=== PATIENT | male | born 1960 | race African-American/Black ===

== ENCOUNTER → 2024-02-11 | Day surgery (SDC) | payer OTHER ==
[~2024-02-11] MED LIST: ACETAMINOPHEN/CODEINE 300MG - 30MG TAB ONE; FENTANYL CITRATE/PF 100MCG/2 ML INJ ONE; FINASTERIDE5 MG PO; FLOMAX0.4 MG PO; LIDOCAINE HCL 2% LOCAL INJ 5 ML SDV VIAL INJ ONE; LIPITOR10 MG PO; MIDAZOLAM HCL 2 MG/2 ML VIAL ONE; ONDANSETRON HCL INJ 2MG/ML 2ML 2 MG/ML VIAL ONE; PHENAZOPYRIDINE HCL 100 MG TAB ONE; PROPOFOL IV EMULSION 10 MG/ML 20 ML VIAL ONE
[2024-02-11 06:59] LABS: BASOPHILS % 0.7 % (0.0-1.0); EOSINOPHILS # (AUTO) 0.2 (0.0-0.4); HEMOGLOBIN 15.5 g/dL (14.0-18.0); LYMPHOCYTES # (AUTO) 1.9 (1.0-3.2); LYMPHOCYTES % 41.6 % (18.0-39.1); MEAN CORPUSCULAR HEMOGLOBIN 30.8 pg (28-32); MEAN CORPUSCULAR HGB CONC 32.3 g/dL (31-35); MEAN CORPUSCULAR VOLUME 95.2 fL (81-99); MONOCYTES # (AUTO) 0.5 (0.2-0.8); MONOCYTES % 9.9 % (4.4-11.3); NEUTROPHILS % 43.4 % (38.7-80.0); PLATELET COUNT 213 x10e3/uL (140-360); RED BLOOD COUNT 5.04 x10e6/uL (4.3-5.7); WHITE BLOOD COUNT 4.54 x10e3/uL (4.8-10.8)
[2024-02-11] MEDS: CEFTRIAXONE 1 GM VIAL ONE (07:23)
[2024-02-11] MEDS: LACTATED RINGER'S 1,000 ML ONE (07:23)
[2024-02-11 07:24] LABS: ALBUMIN 4.1 g/dL (3.5-5.0); ALBUMIN/GLOBULIN RATIO 1.2 (0.8-2.0); ANION GAP 15.9 mmol/L (8-16); BILIRUBIN,TOTAL 0.9 mg/dL (0.2-1.2); CREATININE, SERUM 1.39 mg/dL (0.72-1.25); POTASSIUM 3.9 mmol/L (3.5-5.1); TOTAL PROTEIN 7.5 g/dL (6.5-8.1); URIC ACID 5.4 mg/dL (4.8-8.0)
[2024-02-11] MEDS: GENTAMICIN 80MG/NS 100 ML 200 ML IV ONE (07:24)
[2024-02-11 09:17] VITALS: TEMP 97
[2024-02-11] MEDS: PHENAZOPYRIDINE HCL 100 MG TAB PO ONE ×2 (09:38)
[2024-02-11] MEDS: ACETAMINOPHEN/CODEINE 300MG - 30MG TAB PO ONE (09:45)
[2024-02-11 09:54] VITALS: BP 145/89; PULSE 65; RESP 18; O2SAT 96
== END | disposition home or self-care (01) ==
LOC: OR 06:38
PROVIDERS: ATTEND Urology
DX: N21.0 Calculus in bladder (principal); N39.0 Urinary tract infection, site not specified; R31.29 Other microscopic hematuria; R31.0 Gross hematuria; N40.1 Benign prostatic hyperplasia with lower urinary tract symptoms; R97.20 Elevated prostate specific antigen [PSA]; R35.1 Nocturia; R39.14 Feeling of incomplete bladder emptying; R35.0 Frequency of micturition; N32.81 Overactive bladder; N20.0 Calculus of kidney; N39.41 Urge incontinence; I10 Essential (primary) hypertension; E78.00 Pure hypercholesterolemia, unspecified; Z79.899 Other long term (current) drug therapy
CPT/HCPCS: 36415; 52318; 74420; 80053; 84550; 85025; 88300; C1758; C1769; J0696; J1580; J2003; J2250; J2405; J2704; J3010; J7121

== ENCOUNTER 2024-04-16 06:55 | Inpatient (IN) | payer OTHER ==
[~2024-04-16] VITALS: Ht 177.8 cm; Wt 86.6 kg
[2024-04-16] VITALS (7 sets, daily range): BP systolic 116–124; BP diastolic 77–82; PULSE 54–69; RESP 16–19; TEMP 97.4–98.6; O2SAT 96–100
[~2024-04-16 06:55] MED LIST changes: -ACETAMINOPHEN/CODEINE 300MG - 30MG TAB ONE; -FENTANYL CITRATE/PF 100MCG/2 ML INJ ONE; -LIDOCAINE HCL 2% LOCAL INJ 5 ML SDV VIAL INJ ONE; -MIDAZOLAM HCL 2 MG/2 ML VIAL ONE; -ONDANSETRON HCL INJ 2MG/ML 2ML 2 MG/ML VIAL ONE; -PHENAZOPYRIDINE HCL 100 MG TAB ONE; -PROPOFOL IV EMULSION 10 MG/ML 20 ML VIAL ONE
[2024-04-16] MEDS: PIPERACILLIN/TAZOBACTAM 3.375 GM VIAL ONE (07:55)
[2024-04-16] MEDS: GENTAMICIN 80MG/NS 100 ML 200 ML IV ONE (07:55)
[2024-04-16] MEDS: SODIUM CHLORIDE 0.9% 1000ML 1,000 ML ONE (07:55)
[2024-04-16 08:00] LABS: BASOPHILS % 0.4 % (0.0-1.0); EOSINOPHILS # (AUTO) 0.1 (0.0-0.4); EOSINOPHILS % 2.7 % (0.0-6.0); HEMOGLOBIN 15.4 g/dL (14.0-18.0); LYMPHOCYTES # (AUTO) 2.1 (1.0-3.2); LYMPHOCYTES % 43.2 % (18.0-39.1); MEAN CORPUSCULAR HGB CONC 33.5 g/dL (31-35); MEAN CORPUSCULAR VOLUME 89.7 fL (81-99); MONOCYTES # (AUTO) 0.4 (0.2-0.8); MONOCYTES % 8.6 % (4.4-11.3); NEUTROPHILS # (AUTO) 2.2 (2.1-6.9); NEUTROPHILS % 44.9 % (38.7-80.0); PLATELET COUNT 214 x10e3/uL (140-360); RED BLOOD COUNT 5.13 x10e6/uL (4.3-5.7); RED CELL DISTRIBUTION WIDTH 12.4 % (11.7-14.4); WHITE BLOOD COUNT 4.79 x10e3/uL (4.8-10.8)
[2024-04-16 08:18] LABS: ANION GAP 14.5 mmol/L (8-16); CALCIUM 9.4 mg/dL (8.4-10.2); CREATININE, SERUM 1.47 mg/dL (0.72-1.25); POTASSIUM 4.5 mmol/L (3.5-5.1)
[2024-04-16] MEDS ORDERED: MIDAZOLAM HCL 2 MG/2 ML VIAL ONE (08:46)
[2024-04-16] MEDS ORDERED: FENTANYL CITRATE/PF 100MCG/2 ML INJ ONE ×2 (08:46→10:29)
[2024-04-16] MEDS ORDERED: LIDOCAINE HCL 2% LOCAL INJ 5 ML SDV VIAL INJ ONE (08:46)
[2024-04-16] MEDS ORDERED: PROPOFOL IV EMULSION 10 MG/ML 20 ML VIAL ONE (08:46)
[2024-04-16] MEDS ORDERED: EPHEDRINE SULFATE INJ 50 MG/ML VIAL ONE (10:07)
[2024-04-16] MEDS ORDERED: DEXAMETHASONE SOD PHOS INJ 4 MG/ML SDV ONE (10:07)
[2024-04-16] MEDS ORDERED: ONDANSETRON HCL INJ 2MG/ML 2ML 2 MG/ML VIAL ONE (10:12)
[2024-04-16] MEDS ORDERED: SEVOFLURANE INHAL SOLN 250 ML PEN BTL ONE (10:13)
[2024-04-16] MEDS ORDERED: ACETAMINOPHEN 1000 MG/100 ML 100 ML IV ONE (10:13)
[2024-04-16] MEDS ORDERED: GLYCOPYRROLATE INJ 0.2 MG/ML VIAL ONE ×2 (10:33→11:48)
[2024-04-16] MEDS ORDERED: ROCURONIUM BROMIDE 1 ML IV ONE (10:43)
[2024-04-16] MEDS ORDERED: NEOSTIGMINE 1 MG/ML 10ML VIAL ONE (11:48)
[2024-04-16 12:14] LABS: BASOPHILS % 0.3 % (0.0-1.0); EOSINOPHILS # (AUTO) 0.1 (0.0-0.4); EOSINOPHILS % 1.4 % (0.0-6.0); HEMATOCRIT 39.3 % (38.2-49.6); LYMPHOCYTES # (AUTO) 1.5 (1.0-3.2); MEAN CORPUSCULAR HEMOGLOBIN 29.9 pg (28-32); MEAN CORPUSCULAR HGB CONC 33.1 g/dL (31-35); MEAN CORPUSCULAR VOLUME 90.3 fL (81-99); MONOCYTES # (AUTO) 0.1 (0.2-0.8); MONOCYTES % 2.2 % (4.4-11.3); NEUTROPHILS # (AUTO) 4.1 (2.1-6.9); NEUTROPHILS % 69.9 % (38.7-80.0); PLATELET COUNT 156 x10e3/uL (140-360); RED BLOOD COUNT 4.35 x10e6/uL (4.3-5.7); RED CELL DISTRIBUTION WIDTH 12.4 % (11.7-14.4)
[2024-04-16] MEDS ORDERED: ONDANSETRON HCL INJ 2MG/ML 2ML 2 MG/ML VIAL IV PRN (12:15)
[2024-04-16] MEDS ORDERED: DIPHENHYDRAMINE HCL 25 MG CAP PO PRN (12:15)
[2024-04-16] MEDS ORDERED: ACETAMINOPHEN/CODEINE 300MG - 30MG TAB PO PRN (12:15)
[2024-04-16] MEDS ORDERED: PHENAZOPYRIDINE HCL 100 MG TAB PO PRN (12:15)
[2024-04-16] MEDS ORDERED: ACETAMINOPHEN 1000 MG/100 ML IV PRN (12:15)
[2024-04-16 12:47] LABS: ANION GAP 12.5 mmol/L (8-16); CALCIUM 7.6 mg/dL (8.4-10.2); CREATININE, SERUM 1.35 mg/dL (0.72-1.25); POTASSIUM 4.5 mmol/L (3.5-5.1)
[2024-04-16] MEDS: SODIUM CHLORIDE 0.9% 1000ML 1,000 ML IV SCH (14:20)
[2024-04-16] MEDS ORDERED: SENNA-S TABLET PO SCH (17:00)
[2024-04-16] MEDS: SENNA-S TABLET PO SCH (21:06)
[2024-04-17] VITALS (9 sets, daily range): BP systolic 107–125; BP diastolic 66–78; PULSE 61–85; RESP 18–20; TEMP 97.9–99.1; O2SAT 95–100
[2024-04-17 05:29] LABS: BASOPHILS % 0.1 % (0.0-1.0); HEMATOCRIT 37.5 % (38.2-49.6); HEMOGLOBIN 12.5 g/dL (14.0-18.0); LYMPHOCYTES # (AUTO) 0.8 (1.0-3.2); LYMPHOCYTES % 7.8 % (18.0-39.1); MEAN CORPUSCULAR HEMOGLOBIN 29.9 pg (28-32); MEAN CORPUSCULAR HGB CONC 33.3 g/dL (31-35); MEAN CORPUSCULAR VOLUME 89.7 fL (81-99); MONOCYTES # (AUTO) 0.3 (0.2-0.8); MONOCYTES % 3.2 % (4.4-11.3); NEUTROPHILS # (AUTO) 9.4 (2.1-6.9); NEUTROPHILS % 88.6 % (38.7-80.0); PLATELET COUNT 181 x10e3/uL (140-360); RED BLOOD COUNT 4.18 x10e6/uL (4.3-5.7); RED CELL DISTRIBUTION WIDTH 12.6 % (11.7-14.4); WHITE BLOOD COUNT 10.57 x10e3/uL (4.8-10.8)
[2024-04-17 05:54] LABS: ANION GAP 13.4 mmol/L (8-16); CALCIUM 8.1 mg/dL (8.4-10.2); CREATININE, SERUM 1.46 mg/dL (0.72-1.25); POTASSIUM 4.4 mmol/L (3.5-5.1)
[2024-04-18] VITALS (10 sets, daily range): BP systolic 109–128; BP diastolic 62–80; PULSE 60–75; RESP 18–20; TEMP 97.9–98.3; O2SAT 95–100
[2024-04-18 05:12] LABS: BASOPHILS % 0.1 % (0.0-1.0); EOSINOPHILS % 0.2 % (0.0-6.0); HEMATOCRIT 36.7 % (38.2-49.6); HEMOGLOBIN 12.2 g/dL (14.0-18.0); LYMPHOCYTES # (AUTO) 1.6 (1.0-3.2); LYMPHOCYTES % 16.2 % (18.0-39.1); MEAN CORPUSCULAR HEMOGLOBIN 30.4 pg (28-32); MEAN CORPUSCULAR HGB CONC 33.2 g/dL (31-35); MEAN CORPUSCULAR VOLUME 91.5 fL (81-99); MONOCYTES # (AUTO) 0.6 (0.2-0.8); MONOCYTES % 5.8 % (4.4-11.3); NEUTROPHILS # (AUTO) 7.6 (2.1-6.9); NEUTROPHILS % 77.3 % (38.7-80.0); PLATELET COUNT 170 x10e3/uL (140-360); RED BLOOD COUNT 4.01 x10e6/uL (4.3-5.7); RED CELL DISTRIBUTION WIDTH 12.8 % (11.7-14.4); WHITE BLOOD COUNT 9.78 x10e3/uL (4.8-10.8)
[2024-04-18 05:33] LABS: CALCIUM 8.1 mg/dL (8.4-10.2); CREATININE, SERUM 1.18 mg/dL (0.72-1.25)
[2024-04-19] VITALS (7 sets, daily range): BP systolic 102–142; BP diastolic 68–93; PULSE 58–83; RESP 18–21; TEMP 97.6–98.2; O2SAT 97–100
[2024-04-19 05:22] LABS: BASOPHILS % 0.3 % (0.0-1.0); EOSINOPHILS # (AUTO) 0.2 (0.0-0.4); EOSINOPHILS % 2.9 % (0.0-6.0); HEMATOCRIT 35.9 % (38.2-49.6); HEMOGLOBIN 11.9 g/dL (14.0-18.0); LYMPHOCYTES % 34.2 % (18.0-39.1); MEAN CORPUSCULAR HEMOGLOBIN 30.1 pg (28-32); MEAN CORPUSCULAR HGB CONC 33.1 g/dL (31-35); MEAN CORPUSCULAR VOLUME 90.7 fL (81-99); MONOCYTES # (AUTO) 0.5 (0.2-0.8); MONOCYTES % 8.5 % (4.4-11.3); NEUTROPHILS # (AUTO) 3.1 (2.1-6.9); NEUTROPHILS % 53.8 % (38.7-80.0); PLATELET COUNT 168 x10e3/uL (140-360); RED BLOOD COUNT 3.96 x10e6/uL (4.3-5.7); RED CELL DISTRIBUTION WIDTH 12.8 % (11.7-14.4); WHITE BLOOD COUNT 5.79 x10e3/uL (4.8-10.8)
[2024-04-19 05:49] LABS: CREATININE, SERUM 1.26 mg/dL (0.72-1.25)
[2024-04-19] MEDS ORDERED: TYLENOL325 MG PO (19:01)
[2024-04-19] MEDS ORDERED: SENNA S TABLET1 EACH PO (19:01)
[2024-04-19] MEDS ORDERED: LEVOFLOXACIN250 MG PO (19:01)
== END 2024-04-19 20:40 | disposition home or self-care (01) | DRG 713 ==
LOC: OR 06:55 → PACU V 13:18 → MED/SURG 13:31
PROVIDERS: ADMIT Internal Medicine; ATTEND Internal Medicine
PROC: 0VB08ZZ Excision of Prostate, Via Natural or Artificial Opening Endoscopic (ICD-10-PCS; principal; 2024-04-16 09:59)
PROC: 0VB03ZX Excision of Prostate, Percutaneous Approach, Diagnostic (ICD-10-PCS; 2024-04-16 09:59)
PROC: BT141ZZ Fluoroscopy of Kidneys, Ureters and Bladder using Low Osmolar Contrast (ICD-10-PCS; 2024-04-16 09:59)
DX: N40.1 Benign prostatic hyperplasia with lower urinary tract symptoms (principal); N13.8 Other obstructive and reflux uropathy; N17.9 Acute kidney failure, unspecified; R31.0 Gross hematuria; R39.14 Feeling of incomplete bladder emptying; R97.20 Elevated prostate specific antigen [PSA]; R35.1 Nocturia; R35.0 Frequency of micturition; R31.29 Other microscopic hematuria; R39.15 Urgency of urination; N32.81 Overactive bladder; N32.89 Other specified disorders of bladder; D64.89 Other specified anemias; I12.9 Hypertensive chronic kidney disease with stage 1 through stage 4 chronic kidney disease, or unspecified chronic kidney disease; N18.9 Chronic kidney disease, unspecified; E78.00 Pure hypercholesterolemia, unspecified; Z87.440 Personal history of urinary (tract) infections; Z71.81 Spiritual or religious counseling; Z79.899 Other long term (current) drug therapy
CPT/HCPCS: 36415; 74420; 76872; 76998; 80048; 83735; 85025; 88305; 93005; 94799; C1758; J1100; J1580; J2003; J2250; J2405; J2543; J2710; J7030